=== PATIENT | male | born 1970 | race Caucasian/White ===

== ENCOUNTER 2020-10-12 12:07 | Emergency (ER) | payer SELFPAY ==
[2020-10-12 12:25] VITALS: BP 173/96; PULSE 86
--- NOTE | 2020-10-12 12:44 | EDM.PDOC ---
ED HPI GENERAL MEDICAL PROBLEM - General Chief Complaint: ENT Problem Stated Complaint: INFECTED WISDOM TOOTH Time Seen by Provider: 10/12/20 12:25 Source of Information: Reports: Patient History Limitations: Reports: No Limitations - History of Present Illness INITIAL COMMENTS - FREE TEXT/NARRATIVE: 50-year-old male with left mandibular pain and swelling for the past 2 to 3 da ys. He has not seen a dentist in 4 or more years. He has a wisdom tooth that flares up once or twice yearly, but this is the worst. He has swelling down into his left neck, it hurts to open his jaw and he has difficulty swallowing. No fevers or chills. Onset: Gradual Duration: Day(s): (3 days of symptoms) Location: Reports: Other (Left mandible) Associated Symptoms: Reports: Headaches - Related Data Allergies Allergy/AdvReac Type Severity Reaction Status Date / Time No Known Allergies Allergy Verified 10/12/20 12:23 Home Meds: Home Meds NK [No Known Home Meds] 10/12/20 [History] Past Medical History Gastrointestinal History: Reports: Other (See Below) Other Gastrointestinal History: rectal bleeding Musculoskeletal History: Reports: Arthritis - Infectious Disease History Infectious Disease History: Reports: Chicken Pox, Measles - Past Surgical History HEENT Surgical History: Reports: Tonsillectomy GI Surgical History: Reports: Hernia Repair/Other Musculoskeletal Surgical History: Reports: Other (See Below) Other Musculoskeletal Surgeries/Procedures:: back Dermatological Surgical History: Reports: None Social & Family History - Tobacco Use Tobacco Use Status *Q: Never Tobacco User - Caffeine Use Caffeine Use: Reports: Coffee - Recreational Drug Use Recreational Drug Use: No ED ROS ENT - Review of Systems Review Of Systems: See Below Constitutional: Reports: Malaise. Denies: Fever, Chills HEENT: Reports: Dental Pain, Other (Left facial swelling) Respiratory: Reports: No Symptoms Cardiovascular: Reports: No Symptoms GI/Abdominal: Reports: No Symptoms Skin: Reports: Other (Some erythema is developing over the left mandible) ED EXAM, ENT - Physical Exam Exam: See Below Exam Limited By: No Limitations General Appearance: Alert, Mild Distress (Looks fairly uncomfortable) Mouth/Throat: Other (Some gingival erythema and swelling along the left mandibular molars, he is tender to palpation along the left mandible with some edema and mild redness extending down onto the anterior left neck) Head: Atraumatic Neck: Other (Swelling and tenderness under the left mandible into the anterior cervical chain on the left side) Respiratory/Chest: No Respiratory Distress Neurological: Alert, Oriented Psychiatric: Anxious Course - Vital Signs Last Recorded V/S: Last Vital Signs Temp 99.1 F 10/12/20 12:25 Pulse 86 10/12/20 12:25 Resp 16 10/12/20 12:25 BP 173/96 H 10/12/20 12:25 Pulse Ox 98 10/12/20 12:25 - Re-Assessments/Exams Free Text/Narrative Re-Assessment/Exam: 10/12/20 12:41 Patient will be started on Augmentin 875 mg twice daily, with a recommendation to take 3 today. He was given 10 hydrocodone for extra pain control, and should recheck in 24 to 48 hours if worsening despite treatment. Departure - Departure Time of Disposition: 12:50 Disposition: Home, Self-Care 01 Clinical Impression: Dental abscess - Discharge Information Instructions: Tooth Injuries Referrals: PCP,None [Primary Care Provider] - Forms: ED Department Discharge Care Plan Goals: Take antibiotic as prescribed, use hydrocodone for extra pain control and recheck with the dentist next week if possible. Sepsis Event Note (ED) - Evaluation Sepsis Screening Result: No Definite Risk - Focused Exam Vital Signs: Vital Signs Temp Pulse Resp BP Pulse Ox 10/12/20 12:25 99.1 F 86 16 173/96 H 98 10/12/20 12:24 99.1 F 86 16 173/96 H 98
== END 2020-10-12 12:50 | disposition home or self-care (01) ==
LOC: JP.ED 12:07
DX: K04.7 Periapical abscess without sinus (principal)
CPT/HCPCS: 99282; 99283